=== PATIENT | female | born 1970 | race Caucasian/White ===

== ENCOUNTER 2017-03-01 08:04 | Emergency (ER) | payer SELFPAY ==
[~2017-03-01] VITALS: Ht 170.2 cm; Wt 72.0 kg
[2017-03-01] MEDS ORDERED: KETOROLAC 60MG/2ML VIAL IM ONE (10:00)
[2017-03-01 10:07] VITALS: BP 131/84
[2017-03-01 11:04] LABS: HCG SCREEN NEGATIVE
== END 2017-03-01 12:34 | disposition home or self-care (01) ==
LOC: ER 09:29
DX: M25.562 Pain in left knee (principal); M25.512 Pain in left shoulder; Z90.49 Acquired absence of other specified parts of digestive tract
CPT/HCPCS: 73562; 73590; 73610; 84703; 96372; 99284; J1885; L1830